=== PATIENT | female | born 1980 | race Caucasian/White ===

== ENCOUNTER 2018-10-30 23:05 | Emergency (ER) | payer BC, OTHER ==
[~2018-10-30] VITALS: Ht 160 cm; Wt 116.4 kg
[~2018-10-30 23:05] MED LIST: ALBU18HF INHALATION; ALBU2.5V3 NEB; BEN25 PO; BENZ-6 PO; FAMO-96 PO; LORA10TA3 PO; METH250T21 PO; PRED20TA PO; PREN1TAB13 PO
[2018-10-30 23:07] VITALS: Ht 160 cm; Wt 116.4 kg
[2018-10-31] MEDS ORDERED: DIPHENHYDRAMINE 50 MG INJ IM ONE
[2018-10-31] MEDS ORDERED: DEXAMETHASONE 10 MG/ML 1 ML INJ IM ONE
[2018-10-31] MEDS ORDERED: LEVALBUTEROL (NEB) 1.25 MG/0.5 ML AMP HHN ONE
[2018-10-31 01:01] VITALS: BP 158/74; PULSE 85; RESP 18
== END 2018-10-31 01:01 | disposition home or self-care (01) ==
LOC: FTE 23:05
DX: J45.901 Unspecified asthma with (acute) exacerbation (principal)
CPT/HCPCS: 94664; J1100; J1200; Z7610; 96372